=== PATIENT | female | born 1980 | race Caucasian/White ===

== ENCOUNTER 2019-10-11 19:51 | Emergency (ER) | payer OTHER ==
[~2019-10-11] VITALS: Ht 160 cm; Wt 104.3 kg
[2019-10-11 20:43] LABS: ABSOLUTE EOSINOPHILS 0.1 thou/uL (0.0-0.7); ABSOLUTE LYMPHOCYTES 1.1 thou/uL (0.8-5.3); ABSOLUTE MONOCYTES 0.7 thou/uL (0.0-1.2); ABSOLUTE NEUTROPHILS 8.3 thou/uL (1.6-8.1); BASOPHILS 0.4 %; EOSINOPHILS 1.4 %; HEMATOCRIT 40.9 % (37.0-47.0); HEMOGLOBIN 13.9 gm/dL (12.0-15.0); MCH 29.2 pg (26.0-34.0); MCV 85.9 fL (80.0-100.0); MONOCYTES 7.1 %; MPV 7.9 fl. (7.2-11.1); NUCLEATED RBCS 0 /100WBC; PLATELET COUNT* 257 thou/uL (150-400); POLYS 80.1 %; RBC 4.76 mil/uL (4.20-5.00); WBC 10.3 thou/uL (4.0-11.0)
[2019-10-11 21:07] LABS: CALCIUM 9.1 mg/dL (8.5-10.1)
[2019-10-11] MEDS ORDERED: MEDROLDOSEPACK PO (21:48)
[2019-10-11] MEDS ORDERED: MOBIC7.5 MG PO (21:49)
[2019-10-11] MEDS ORDERED: FLEXERIL PO (21:49)
[2019-10-11 22:15] VITALS: BP 133/85
--- NOTE | 2019-10-12 10:38 | EKG ---
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 10/12/19 [facility] 10 10 Felipe Scruggs MD, FACC /EPI
== END 2019-10-11 22:15 | disposition home or self-care (01) ==
LOC: M.ERS 19:51
PROVIDERS: Nurse Practitioner
DX: M54.12 Radiculopathy, cervical region (principal)